=== PATIENT | female | born 2005 | race African-American/Black ===

== ENCOUNTER 2023-12-22 01:39 | Observation (INO) | payer MEDICAID, SELFPAY ==
[2023-12-22] VITALS (40 sets, daily range): BP systolic 82–132; BP diastolic 43–82; PULSE 87–155; RESP 14–37; TEMP 36.2–37; O2SAT 95–100; BMI 23.3; BMI 22.1
--- NOTE | 2023-12-22 01:48 | EKG12_ITS ---
Test Reason : MHC Blood Pressure : / mmHG Vent. Rate : 121 BPM Atrial Rate : 121 BPM P-R Int : 128 ms QRS Dur : 064 ms QT Int : 428 ms P-R-T Axes : 065 068 064 degrees QTc Int : 607 ms Critical Test Result: Long QTc Sinus tachycardia ST & T wave abnormality, consider anterolateral ischemia Abnormal ECG Confirmed by QUEENIE PRESTON MD ([id number]), legal editor VESTA JAVED ([id number]) on 12/22/2023 8:03:21 AM Referred By: Confirmed By:QUEENIE PRESTON MD
--- NOTE | 2023-12-22 01:58 | EX.ED.SAOD ---
HPI History of Present Illness Chief Complaint: Overdose Informant: patient, EMS and police/radioactivity technician Narrative Narrative: Patient brought in after an intentional overdose where she tried to kill herself tonight. She took what was left in 5 different bottles of prescription pills that are all her just. 3 of the bottles contained various amounts of the same prescription pill, bupropion XL 300 mg. She states one of them was almost gone, one of them was about half full, and the other was a little less than half. Each pill container when full shows 90 tablets, so it is estimated that she took a total of approximately 90 of these based on the above information. With regards to the other medications that she took, one of the pill bottles was generic Adderall 10 mg tablets, it was almost full when she took them, and 1 full it contains 60 tablets. The other was sertraline 50 mg tablets, she states it was full and she took all 90 of them. bupropion XL approx 27g amphetamine-dextroamphetamine approx 550mg sertraline HCl approx 4500mg Patient took all of these tablets, and no pills or substances that were not in these 5 prescription bottles, just prior to arrival, and she took them all basically around the same time within 10 minutes or so. She started vomiting less than an hour after taking the tablets, and EMS states this began upon their arrival and continued afterwards. The 2 emesis that they witnessed both contain pill fragments. Police state that she made a 20-minute cell phone video that was basically a suicide note, including information for her father so that he could access her bank account, cell phone, etc. after she . She states that she is depressed about many things, but the thing that basically pushed her over the edge today was looking at her grades in school, she states she is basically failing all of her classes and she states the main reason for this is probably that she is very depressed and just not doing well in school in general. She goes to college here locally, studying animal science. [facility] Medical History Anxiety Depression Home Medications bupropion HCl 300 mg 24 hr tablet, extended release 300 mg PO DAILY 12/22/23 [History Last Taken Unknown] dextroamphetamine-amphetamine 10 mg tablet (Adderall) 10 mg PO BID 12/22/23 [History Last Taken Unknown] sertraline 25 mg tablet 50 mg PO DAILY 12/22/23 [History Last Taken Unknown] Allergy/AdvReac Type Severity Reaction Status Date / Time No Known Allergies Allergy Verified 12/22/23 01:40 Social History Smoking Status: Current every day smoker tobacco type: e-cigarettes ROS ROS ED Constitutional Constitutional ED: Denies chills or fever(s) Eyes Eyes: Denies change in vision or diplopia ENT ENT ED: Denies rhinorrhea or sore throat Cardiovascular Cardiovascular: Denies chest pain or palpitations Respiratory/Chest Respiratory/Chest: Denies cough or dyspnea Gastrointestinal Gastrointestinal: Reports nausea and vomiting; Denies abdominal pain or diarrhea Genitourinary Genitourinary ED: Denies dysuria or hematuria Musculoskeletal Musculoskeletal: Denies back pain or neck pain Integumentary Denies abscess or rash Neurologic Neurologic: Denies headache(s), paresthesias or weakness Psychiatric Psychiatric: Reports depression, suicidal ideation and suicidal thoughts EXAM Physical Exam Const Vital Signs: 12/22/23 01:40 12/22/23 02:40 12/22/23 03:00 Temperature 98.3 F Temperature Source Oral Pulse Rate 93 97 109 H Respiratory Rate 17 16 19 H Blood Pressure 121/79 H 115/73 120/74 Blood Pressure Mean 93 87 89 Pulse Ox 98 97 95 Oxygen Delivery Method Room Air Room Air Room Air 12/22/23 04:00 12/22/23 02:03 12/22/23 02:16 Temperature Temperature Source Pulse Rate 122 H 87 88 Respiratory Rate 18 20 H 16 Blood Pressure 120/72 132/77 H Blood Pressure Mean 88 91 Pulse Ox 95 Oxygen Delivery Method Room Air 12/22/23 02:30 12/22/23 02:45 12/22/23 03:00 Temperature Temperature Source Pulse Rate 99 107 H Respiratory Rate 17 23 H Blood Pressure 115/73 120/70 120/74 Blood Pressure Mean 86 83 87 Pulse Ox Oxygen Delivery Method 12/22/23 03:15 12/22/23 03:30 12/22/23 03:45 Temperature Temperature Source Pulse Rate 108 H 113 H Respiratory Rate 20 H 24 H Blood Pressure 110/76 109/67 113/64 Blood Pressure Mean 88 80 79 Pulse Ox 98 99 Oxygen Delivery Method 12/22/23 04:00 12/22/23 04:15 12/22/23 04:52 Temperature 98.6 F Temperature Source Pulse Rate 135 H 139 H Respiratory Rate 23 H 19 H Blood Pressure 120/72 116/60 128/62 H Blood Pressure Mean 87 75 84 Pulse Ox 97 Oxygen Delivery Method 12/22/23 05:00 Temperature Temperature Source Pulse Rate 141 H Respiratory Rate 18 Blood Pressure 124/65 H Blood Pressure Mean 84 Pulse Ox 98 Oxygen Delivery Method Room Air Positive well nourished and well developed Constitutional Narrative: Blue discolored emesis in patient's hair General Appearance ED: well developed and NAD HEENT Reports moist mucous membranes normocephalic and atraumatic Eyes PERRL and EOMs intact bilaterally Neck full ROM and supple Chest Wall inspection of chest normal and palpation of chest normal Resp normal respiratory effort and clear to auscultation bilaterally Cardio regular rate, regular rhythm and no murmurs Rate: Negative for tachycardic GI non-tender and non-distended Auscultation: normoactive bowel sounds Palpation: soft Back/Spine no CVA tenderness General Back: other FROM Extremity normal to inspection General Extremety ED: Negative for edema, pulses abnormal or tenderness General Extremity: Negative for edema or pulses abnormal Neuro oriented x3, CN's II-XII intact bilaterally and no sensory deficits noted Sensorium / Orientation: awake and alert Motor Exam: strength 5/5 throughout Psych thought process normal, cooperative, speech normal, activity/motor behavior normal, denies hallucinations and denies homicidal ideation Appearance: grossly normal Mood & Affect: depressed Memory / Cognition: memory grossly intact Insight: insight good Judgement: poor Skin no rashes or lesions noted and no wounds MDM MDM MDM Narrative Medical decision making narrative: Patient more risk for side effects/symptoms, and rarely serotonin syndrome, with this overdose, and less likely threat to life. She is stable, given Zofran and not currently vomiting, so is given 25 g of charcoal to drink which she did without difficulty or incident while we obtained labs including acetaminophen and salicylate levels which were essentially 0. Her EKG does show a very long QTc. She has no prior EKG available but I would not anticipate she has a history of this and it is very likely related to her overdose. She did develop tachycardia although she did not have it initially. I discussed her workup, vital signs, prolonged QTc, and overall ingestion/clinical picture with poison control. They recommend admitting her medically. He recommends adding a magnesium, recommendations are also to normalize potassium, calcium, magnesium in the middle of the normal ranges as best possible, right now her calcium is at the low end of normal so we will administer a single 10 mill equivalent IV bolus of potassium over the next hour. He recommends seizure precautions for the first 24 hours even with 900 mg of bupropion XL or more, the patient took much more than that; questionable how much she absorbed given the emesis and charcoal she was given. Tachycardia she developed can occur with any of the 3 ingestants. Her QRS is narrow right now which is favorable. Serotonin syndrome is in the differential and tends to develop 6-8 hours after the ingestion. She is not febrile or altered at this time. Lab Data Attestation: I reviewed the patient's lab results. Labs: Laboratory Results - last 24 hr 12/22/23 12/22/23 12/22/23 01:58 03:00 03:09 WBC 7.2 RBC 5.78 H Hgb 15.0 Hct 46.6 MCV 80.6 L MCH 26.0 L MCHC 32.2 RDW Std Deviation 34.5 L RDW Coeff of Abilio 12.0 Plt Count Not Reportable Immature Gran % (Auto) 0.300 Neut % (Auto) 60.3 Lymph % (Auto) 29.0 Steele % (Auto) 8.5 Eos % (Auto) 0.8 Baso % (Auto) 1.1 H Absolute Neuts (auto) 4.3 Absolute Lymphs (auto) 2.09 Nucleated RBC % 0 Platelet Estimate ADEQUATE Plt Morphology Comment CLUMPED RBC Morphology NORM C+C Sodium Cancelled 136 Potassium Cancelled 3.5 Chloride Cancelled 105 Carbon Dioxide Cancelled 17.0 L Anion Gap Cancelled 14 BUN Cancelled 12 Creatinine Cancelled 0.98 Estim Creat Clear Calc Cancelled 82.40 Est GFR (MDRD) Af Amer Cancelled 93 Est GFR (MDRD) Non-Af Cancelled 77 BUN/Creatinine Ratio Cancelled 12.3 Glucose Cancelled 108 H Calcium Cancelled 9.7 Magnesium 2.4 Total Bilirubin Cancelled 0.80 AST Cancelled 15 ALT Cancelled 17 Alkaline Phosphatase Cancelled 50 Total Protein Cancelled 8.7 H Albumin Cancelled 5.1 H Globulin Cancelled 3.6 Albumin/Globulin Ratio Cancelled 1.4 Serum , Qual NEGATIVE Salicylates Cancelled < 1.7 L Urine Opiates Screen NEGATIVE Urine Methadone Screen NEGATIVE Acetaminophen Cancelled 15.2 Ur Barbiturates Screen NEGATIVE Ur Phencyclidine Scrn NEGATIVE Ur Amphetamines Screen POSITIVE H MDMA (Ecstasy) Screen POSITIVE H U Benzodiazepines Scrn NEGATIVE Urine Cocaine Screen NEGATIVE U Cannabinoids Screen NEGATIVE Ur Drug Screen Comment Ethyl Alcohol Cancelled < 3.0 Rhythm Strip Rhythm Strip: Sinus Tach Rate: 120 Ectopy: None EKG Initial EKG: Interpretation: No Acute Injury Pattern, Sinus Tachycardia and Non-Specific ST Changes Comments: Prolonged QTc, approximately 600 ms Prior EKG tracings: available for review Prior: No Prior Management Discussion w/another healthcare provider: Hospitalist and Mechanics Supervisor (Poison control/toxicology) Critical Care Time Critical Care Time: Yes Critical care time (excluding procedures): 30-74 minutes (33 minutes), Including time spent:, Discussing w/Patient &/or Family/Clearing Distribution Clerk, Discussing w/Consultants and Performing Direct Patient Care at Bedside Discharge Plan Dx/Rx/DC Orders Clinical Impression: Drug overdose, multiple drugs, Suicide attempt by drug overdose Disposition Disposition: Acute Care [facility]
[2023-12-22] MEDS: Activated Charcoal 25 GM/120 ML BOT PO (02:07)
[2023-12-22 02:08] LABS: Absolute Lymphocyte Count 2.09 X10^3/uL (0.83-4.51); Absolute Neutrophil Count 4.3 X10^3/uL (2.0-7.7); Basophil# 0.08 X10^3/uL; Basophil% 1.1 % (0-1); Eosinophil# 0.06 X10^3/uL; Eosinophils% 0.8 % (0-5); Hematocrit 46.6 % (37-47); Lymphocyte # 2.09 X10^3/ul (0.83-4.51); Mean Corp Hgb Conc 32.2 g/dL (32-36); Mean Corpuscular Volume 80.6 fL (81-99); Monocyte# 0.61 X10^3/uL; Monocyte% 8.5 % (0-10); NRBC Flagged by Analyzer 0 % (0-5); Neutrophil # 4.34 X10^3/uL (2.7-7.7); Neutrophil % 60.3 % (47-70); POSITIVE COUNT YES; RBC Distribution Width SD 34.5 fl (35.1-43.9); Red Blood Count 5.78 M/mm3 (4.2-5.4); White Blood Count 7.2 K/mm3 (4.4-11.0)
[2023-12-22 02:16] LABS: Internal QC Validated? YES +Cl - CLEAR BKGD; Pregnancy, Serum, hCG Quali. NEGATIVE Negative
[2023-12-22] MEDS: Ondansetron 4 MG/2 ML Vial IV (02:16)
[2023-12-22 02:39] LABS: Differential Indicated SCAN CRITERIA MET
[2023-12-22 02:41] LABS: Platelet Estimate ADEQUATE (ADEQ)
[2023-12-22 02:42] LABS: Platelet Morphology CLUMPED; Red Cell Morphology NORM C+C NORMAL (NORM C&C)
[2023-12-22 04:07] LABS: Amphetamine Urine VISTA POSITIVE (<1000 ng/mL); Barbiturate Urine VISTA NEGATIVE (< 200 ng/mL); Benzodiazepine Urine VISTA NEGATIVE (< 200 ng/mL); Cocaine Urine VISTA NEGATIVE (< 300 ng/mL); Ecstacy Urine VISTA POSITIVE (< 500 ng/mL); Methadone Urine VISTA NEGATIVE (< 300 ng/mL); PCP Urine VISTA NEGATIVE (< 25 ng/mL); THC Urine VISTA NEGATIVE (< 50 ng/mL); Vista UDS pH Range 4
[2023-12-22 04:25] LABS: ALB/GLOB Ratio 1.4 RATIO (0.9-2.4); AST(SGOT) 15 U/L (15-37); Alanine Aminotransfer ALT/SGPT 17 U/L (13-56); Albumin, Serum 5.1 g/dL (3.2-5.0); Alkaline Phosphatase 50 U/L (45-117); Anion Gap 14 (5-15); BUN 12 mg/dL (7-18); BUN/Creat Ratio 12.3 RATIO (10-20); Calcium,Total 9.7 mg/dL (8.5-10.1); Chloride 105 mmol/L (98-107); Creatinine, Serum 0.98 mg/dL (0.55-1.02); EST Glomerular Filtration Rate 77 mL/min (>60); Est Glom Filt Rate - Afr Amer 93 mL/min (>60); Globulin 3.6 g/dL (2.2-4.2); Glucose 108 mg/dL (74-106); Potassium 3.5 mmol/L (3.5-5.1); Protein, Total 8.7 g/dL (6.4-8.2); Sodium Level 136 mmol/L (136-145)
[2023-12-22 04:26] LABS: Acetaminophen (Tylenol) Level 15.2 ug/mL (10.0-30.0); Alcohol, Blood (Medical)-Serum < 3.0 mg/dL; Salicylate < 1.7 mg/dL (2.8-20.0)
[2023-12-22 04:51] LABS: Magnesium 2.4 mg/dL (1.6-2.6)
[2023-12-22] MEDS: Potassium Chloride 10mEq/100mL 10 MEQ/100 ML IV.SOLN. 100 MEQ IV BOLUS ×2 (04:52→09:47)
--- NOTE | 2023-12-22 04:53 | PCM.HP.STD ---
HPI - General General Date of Admission: 12/22/23 Date of Service: 12/22/23 Chief Complaint: Polypharmacy overdose HPI Narrative TERESA RODRÍGUEZ, is a 18 F who presents to the emergency room with attempted suicide by polypharmacy. By estimates of the ER physician she took bupropion XL approximately 27 g, amphetamine/dextroamphetamine 550 mg, sertraline approximately 4500 mg. She took all of these pills approximately 1 hour or so prior to EMS arrival. The patient started vomiting approximately when EMS arrived and had two emesis that were witnessed both containing pill fragments. Please also report that she made a 20-minute cell phone video that was basically a suicide note that had information for the father to access her bank account and cell phone after she had . 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 Patient denies any chest pain, shortness of breath or fevers or chills she does have increased heart rate since arrival to the emergency room. Poison control was notified and stated adding magnesium and watching electrolyte replacement with a 24-hour observation was recommended. Therefore, she will be admitted to the ICU for 24-hour observation and crisis management team consulted. [facility] Medical History (Updated 12/22/23 @ 03:[address] Fernando Begum MD) Anxiety Depression Home Medications bupropion HCl 300 mg 24 hr tablet, extended release 300 mg PO DAILY 12/22/23 [History Last Taken Unknown] dextroamphetamine-amphetamine 10 mg tablet (Adderall) 10 mg PO BID 12/22/23 [History Last Taken Unknown] sertraline 25 mg tablet 50 mg PO DAILY 12/22/23 [History Last Taken Unknown] Allergy/AdvReac Type Severity Reaction Status Date / Time No Known Allergies Allergy Verified 12/22/23 01:40 Social History Smoking Status: Current every day smoker tobacco type: e-cigarettes ROS Constitutional Constitutional: Denies chills or fever(s) Eyes Eyes: Denies blurry vision ENT HEENT: Denies abnormal hearing Cardiovascular Cardiovascular: Denies chest pain Respiratory/Chest Respiratory/Chest: Denies shortness of breath at rest Gastrointestinal Gastrointestinal: Denies abdominal pain Genitourinary Genitourinary: Denies dysuria Musculoskeletal Musculoskeletal: Denies back pain Integumentary Integumentary: Denies dry skin Neurologic Neurologic: Denies abnormal speech Psychiatric Psychiatric: Reports depression Vital Signs Vital Signs Vital Signs: 12/22/23 01:40 12/22/23 02:40 12/22/23 03:00 Temperature 98.3 F Temperature Source Oral Pulse Rate 93 97 109 H Respiratory Rate 17 16 19 H Blood Pressure 121/79 H 115/73 120/74 Blood Pressure Mean 93 87 89 Pulse Ox 98 97 95 Oxygen Delivery Method Room Air Room Air Room Air 12/22/23 04:00 12/22/23 02:03 12/22/23 02:16 Temperature Temperature Source Pulse Rate 122 H 87 88 Respiratory Rate 18 20 H 16 Blood Pressure 120/72 132/77 H Blood Pressure Mean 88 91 Pulse Ox 95 Oxygen Delivery Method Room Air 12/22/23 02:30 12/22/23 02:45 12/22/23 03:00 Temperature Temperature Source Pulse Rate 99 107 H Respiratory Rate 17 23 H Blood Pressure 115/73 120/70 120/74 Blood Pressure Mean 86 83 87 Pulse Ox Oxygen Delivery Method 12/22/23 03:15 12/22/23 03:30 12/22/23 03:45 Temperature Temperature Source Pulse Rate 108 H 113 H Respiratory Rate 20 H 24 H Blood Pressure 110/76 109/67 113/64 Blood Pressure Mean 88 80 79 Pulse Ox 98 99 Oxygen Delivery Method 12/22/23 04:00 12/22/23 04:15 Temperature Temperature Source Pulse Rate 135 H Respiratory Rate 23 H Blood Pressure 120/72 116/60 Blood Pressure Mean 87 75 Pulse Ox Oxygen Delivery Method Weight Weight: 140 lb Body Mass Index (BMI) 23.3 Physical Exam Const alert and oriented x3 General Appearance: cooperative HEENT normocephalic and head/scalp atraumatic Eyes PERRL and EOMs intact bilaterally Neck no lymphadenopathy Lymph Lymphatic: no lymphadenopathy noted Resp normal respiratory effort, normal air movement and clear to auscultation bilaterally Cardio regular rhythm, S1 normal heart sound and S2 normal heart sound Rate: tachycardic Heart Sounds: Negative for murmur GI normal to inspection, nondistended, normoactive bowel sounds Extremity normal capillary refill Skin General Skin Exam: no breakdown Neuro CN's II-XII intact bilaterally Psych cooperative and affect normal Mood & Affect: depressed Thought Content: suicidality Results Lab / Micro Data 12/22/23 01:58 12/22/23 03:00 Labs: Laboratory Results - last 24 hr 12/22/23 01:58: WBC 7.2, RBC 5.78 H, Hgb 15.0, Hct 46.6, MCV 80.6 L, MCH 26.0 L, MCHC 32.2, RDW Std Deviation 34.5 L, RDW Coeff of Abilio 12.0, Plt Count Not Reportable, Immature Gran % (Auto) 0.300, Neut % (Auto) 60.3, Lymph % (Auto) 29.0, Otero % (Auto) 8.5, Eos % (Auto) 0.8, Baso % (Auto) 1.1 H, Absolute Neuts (auto) 4.3, Absolute Lymphs (auto) 2.09, Nucleated RBC % 0, Platelet Estimate ADEQUATE, Plt Morphology Comment CLUMPED, RBC Morphology NORM C+C, Sodium Cancelled, Potassium Cancelled, Chloride Cancelled, Carbon Dioxide Cancelled, Anion Gap Cancelled, BUN Cancelled, Creatinine Cancelled, Estim Creat Clear Calc Cancelled, Est GFR (MDRD) Af Amer Cancelled, Est GFR (MDRD) Non-Af Cancelled, BUN/Creatinine Ratio Cancelled, Glucose Cancelled, Calcium Cancelled, Total Bilirubin Cancelled, AST Cancelled, ALT Cancelled, Alkaline Phosphatase Cancelled, Total Protein Cancelled, Albumin Cancelled, Globulin Cancelled, Albumin/Globulin Ratio Cancelled, Serum , Qual NEGATIVE, Salicylates Cancelled, Acetaminophen Cancelled, Ethyl Alcohol Cancelled 12/22/23 03:00: Sodium 136, Potassium 3.5, Chloride 105, Carbon Dioxide 17.0 L, Anion Gap 14, BUN 12, Creatinine 0.98, Estim Creat Clear Calc 82.40, Est GFR (MDRD) Af Amer 93, Est GFR (MDRD) Non-Af 77, BUN/Creatinine Ratio 12.3, Glucose 108 H, Calcium 9.7, Magnesium 2.4, Total Bilirubin 0.80, AST 15, ALT 17, Alkaline Phosphatase 50, Total Protein 8.7 H, Albumin 5.1 H, Globulin 3.6, Albumin/Globulin Ratio 1.4, Salicylates < 1.7 L, Acetaminophen 15.2, Ethyl Alcohol < 3.0 12/22/23 03:09: Urine Opiates Screen NEGATIVE, Urine Methadone Screen NEGATIVE, Ur Barbiturates Screen NEGATIVE, Ur Phencyclidine Scrn NEGATIVE, Ur Amphetamines Screen POSITIVE H, MDMA (Ecstasy) Screen POSITIVE H, U Benzodiazepines Scrn NEGATIVE, Urine Cocaine Screen NEGATIVE, U Cannabinoids Screen NEGATIVE, Ur Drug Screen Comment Rhythm Strip Rhythm Strip: Sinus Tach Rate: 120 Ectopy: None Assessment & Plan Assessment/Plan (1) Suicide attempt by drug overdose: (2) Drug overdose, multiple drugs: PLAN: Plan 1 suicide attempt by polypharmacy overdose?admit patient to ICU, consult ICU surgical assistant for ICU management, consult crisis management team for suicide attempt and crisis management?monitor electrolytes and replace accordingly per poison control recommendations. Patient's been given magnesium in the emergency room per poison control recommendation a 24-hour observation was recommended. Once patient is medically stable she can be discharged to psychiatric hospital per crisis team management recommendation. Charges/Coding Visit Charges Inpatient E&M: 80625 Init Hosp L2
[2023-12-22] MEDS: 0.9% Normal Saline (1000mL) 1,000 ML 125 ML IV ×3 (06:07→18:50)
[2023-12-22 06:11] LABS: Absolute Lymphocyte Count 0.87 X10^3/uL (0.83-4.51); Absolute Neutrophil Count 7.3 X10^3/uL (2.0-7.7); Basophil# 0.06 X10^3/uL; Basophil% 0.7 % (0-1); Eosinophil# 0.01 X10^3/uL; Eosinophils% 0.1 % (0-5); Hematocrit 39.6 % (37-47); Hemoglobin 12.9 g/dL (12.0-15.0); Lymphocyte # 0.87 X10^3/ul (0.83-4.51); Lymphocyte % 9.8 % (19-41); Mean Corp Hgb Conc 32.6 g/dL (32-36); Mean Corpuscular Hgb 26.2 pg (27.0-32.0); Mean Corpuscular Volume 80.3 fL (81-99); Mean Platelet Vol. 10.7 fl (6.2-12.0); Monocyte# 0.66 X10^3/uL; Monocyte% 7.4 % (0-10); NRBC Flagged by Analyzer 0 % (0-5); Neutrophil # 7.25 X10^3/uL (2.7-7.7); Neutrophil % 81.8 % (47-70); Platelet Count 411 K/mm3 (150-450); RBC Distribution Width CV 12.1 % (11.6-14.6); RBC Distribution Width SD 34.9 fl (35.1-43.9); Red Blood Count 4.93 M/mm3 (4.2-5.4); White Blood Count 8.9 K/mm3 (4.4-11.0)
[2023-12-22] MEDS: LORazepam 2 MG/ML Syringe IV ×2 (06:14→12:20)
[2023-12-22] MEDS: 0.9% Saline Lock 10 ML Syringe IV ×2 (06:16→06:25)
[2023-12-22 06:28] LABS: ALB/GLOB Ratio 1.2 RATIO (0.9-2.4); AST(SGOT) 13 U/L (15-37); Alanine Aminotransfer ALT/SGPT 19 U/L (13-56); Albumin, Serum 4.3 g/dL (3.2-5.0); Alkaline Phosphatase 47 U/L (45-117); Anion Gap 8 (5-15); BUN 11 mg/dL (7-18); Calcium,Total 8.8 mg/dL (8.5-10.1); Chloride 106 mmol/L (98-107); EST Glomerular Filtration Rate 67 mL/min (>60); Est Glom Filt Rate - Afr Amer 81 mL/min (>60); Estimated Creatinine Clearance 73.41 ml/min; Globulin 3.6 g/dL (2.2-4.2); Glucose 117 mg/dL (74-106); Magnesium 2.1 mg/dL (1.6-2.6); Phosphorus 2.7 mg/dL (2.5-4.9); Potassium 3.7 mmol/L (3.5-5.1); Protein, Total 7.9 g/dL (6.4-8.2); Sodium Level 136 mmol/L (136-145)
[2023-12-22 06:40] LABS: Bedside Glucose 112 mg/dL (74-106)
--- NOTE | 2023-12-22 06:45 | NURSING ---
0612- this RN bedside w/ sitter when pt began having tonic clonic seizure. Staff assist activated. Seizure last approximately 10 to 15 seconds, pt placed on side. Dr. Mckeon paged to bedside. 2 mg of IV ativan administered @ 0614. Pt HR in 150's, O2 stable.
--- NOTE | 2023-12-22 08:42 | CON.PCM.CC_ITS ---
Assessment & Plan Assessment/Plan (1) Suicide attempt by drug overdose: PLAN: Plan RECOMMENDATIONS: 1. Continue supportive measures along with seizure precautions. 2. Continue as needed Ativan. 3. Close monitoring of QTc and electrolyte abnormalities. 4. Continue supplemental IV fluid hydration. 5. Additional recommendations per poison control. IMPRESSIONS: 1. Polypharmacy overdose The patient presented following a polypharmacy suicide attempt, during which time, the patient ingested a combination of bupropion, Adderall and sertraline. She is being monitored clinically for any signs of decompensation or serotonin syndrome. The patient did have one witnessed seizure event this morning which was medically managed with benzodiazepines. She will remain on seizure precautions and accordingly. We will continue to monitor QTc and replete electrolytes as needed. Will enact additional interventions per poison control recommendations. The patient will require crisis evaluation once medically stabilized. 2. History of depression/anxiety/ADHD Complicates care, management, recovery and prognosis. Continue supportive measures as noted above. This note was generated with [employer] dictation software. It may contain incorrect words, spelling, and punctuation that were not noted in checking the note before signing. HPI Consult Data Date of Consult: 12/22/23 HPI Narrative Reason for Consultation: Polypharmacy overdose HPI Narrative: The patient is a 18-year-old female, with a history as outlined below, who prese nted to the emergency department on December 21 following an intentional overdose that included the ingestion of bupropion XL, sertraline and Adderall. History pertinent to her hospitalization was obtained primarily via chart review, as the patient is too altered presently to provide any additional details. According to the report, the patient began vomiting approximately 1 hour after tablet ingestion. Apparently, the patient became distraught over her performance in college after her grades were posted. In the emergency department, the patient did receive activated charcoal. She was noted to have QTc prolongation on EKG. Poison control was contacted regarding the patient's status. The patient was subsequently admitted to the medical intensive care unit for close monitoring. Shortly after her arrival to the ICU, staff noted a possible seizure, which was medically managed with IV Ati van. The patient remains on seizure precautions. Her morning labs are significant for a potassium of 3.7, creatinine of 1.1, phosphorus of 2.7, and magnesium of 2.1. The patient is currently afebrile and hemodynamically stable. [facility] Medical History Anxiety Depression Home Medications bupropion HCl 300 mg 24 hr tablet, extended release 300 mg PO DAILY 12/22/23 [History Last Taken Unknown] dextroamphetamine-amphetamine 10 mg tablet (Adderall) 10 mg PO BID 12/22/23 [History Last Taken Unknown] sertraline 25 mg tablet 50 mg PO DAILY 12/22/23 [History Last Taken Unknown] Allergy/AdvReac Type Severity Reaction Status Date / Time No Known Allergies Allergy Verified 12/22/23 01:40 Social History Smoking Status: Current every day smoker tobacco type: e-cigarettes ROS Review of Systems ROS Unobtainable: due to mental status Physical Exam Const alert Constitutional Narrative: Appears confused and disoriented. HEENT normocephalic and head/scalp atraumatic Eyes PERRL, EOMs intact bilaterally and conjunctivae normal Neck supple General: trachea midline Chest inspection of chest normal Resp Effort and Inspection: tachypneic Auscultation: rales; Negative for rhonchi or wheezes Cardio S1 normal heart sound, S2 normal heart sound and no murmurs Rate: tachycardic GI normal to inspection, nondistended, normoactive bowel sounds Extremity no clubbing, cyanosis or edema Skin no rashes or lesions noted Neuro moves all extremities Psych Activity / Motor Behavior: restless Lab / Micro Data 12/22/23 06:05 12/22/23 06:05 Labs: Laboratory Results - last 24 hr 12/22/23 01:58: WBC 7.2, RBC 5.78 H, Hgb 15.0, Hct 46.6, MCV 80.6 L, MCH 26.0 L, MCHC 32.2, RDW Std Deviation 34.5 L, RDW Coeff of Abilio 12.0, Plt Count Not Reportable, Immature Gran % (Auto) 0.300, Neut % (Auto) 60.3, Lymph % (Auto) 29.0, Hocking % (Auto) 8.5, Eos % (Auto) 0.8, Baso % (Auto) 1.1 H, Absolute Neuts (auto) 4.3, Absolute Lymphs (auto) 2.09, Nucleated RBC % 0, Platelet Estimate ADEQUATE, Plt Morphology Comment CLUMPED, RBC Morphology NORM C+C, Sodium Cancelled, Potassium Cancelled, Chloride Cancelled, Carbon Dioxide Cancelled, Anion Gap Cancelled, BUN Cancelled, Creatinine Cancelled, Estim Creat Clear Calc Cancelled, Est GFR (MDRD) Af Amer Cancelled, Est GFR (MDRD) Non-Af Cancelled, BUN/Creatinine Ratio Cancelled, Glucose Cancelled, Calcium Cancelled, Total Bilirubin Cancelled, AST Cancelled, ALT Cancelled, Alkaline Phosphatase Cancelled, Total Protein Cancelled, Albumin Cancelled, Globulin Cancelled, Albumin/Globulin Ratio Cancelled, Serum , Qual NEGATIVE, Salicylates Cancelled, Acetaminophen Cancelled, Ethyl Alcohol Cancelled 12/22/23 03:00: Sodium 136, Potassium 3.5, Chloride 105, Carbon Dioxide 17.0 L, Anion Gap 14, BUN 12, Creatinine 0.98, Estim Creat Clear Calc 82.40, Est GFR (MDRD) Af Amer 93, Est GFR (MDRD) Non-Af 77, BUN/Creatinine Ratio 12.3, Glucose 108 H, Calcium 9.7, Magnesium 2.4, Total Bilirubin 0.80, AST 15, ALT 17, Alkaline Phosphatase 50, Total Protein 8.7 H, Albumin 5.1 H, Globulin 3.6, Albumin/Globulin Ratio 1.4, Salicylates < 1.7 L, Acetaminophen 15.2, Ethyl Alcohol < 3.0 12/22/23 03:09: Urine Opiates Screen NEGATIVE, Urine Methadone Screen NEGATIVE, Ur Barbiturates Screen NEGATIVE, Ur Phencyclidine Scrn NEGATIVE, Ur Amphetamines Screen POSITIVE H, MDMA (Ecstasy) Screen POSITIVE H, U Benzodiazepines Scrn NEGATIVE, Urine Cocaine Screen NEGATIVE, U Cannabinoids Screen NEGATIVE, Ur Drug Screen Comment 12/22/23 06:05: WBC 8.9, RBC 4.93, Hgb 12.9, Hct 39.6, MCV 80.3 L, MCH 26.2 L, MCHC 32.6, RDW Std Deviation 34.9 L, RDW Coeff of Abilio 12.1, Plt Count 411, MPV 10.7, Immature Gran % (Auto) 0.200, Neut % (Auto) 81.8 H, Lymph % (Auto) 9.8 L, Hocking % (Auto) 7.4, Eos % (Auto) 0.1, Baso % (Auto) 0.7, Absolute Neuts (auto) 7.3, Absolute Lymphs (auto) 0.87, Nucleated RBC % 0, Sodium 136, Potassium 3.7, Chloride 106, Carbon Dioxide 22.0, Anion Gap 8, BUN 11, Creatinine 1.10 H, Estim Creat Clear Calc 73.41, Est GFR (MDRD) Af Amer 81, Est GFR (MDRD) Non-Af 67, BUN/Creatinine Ratio 10.0, Glucose 117 H, Calcium 8.8, Phosphorus 2.7, Magnesium 2.1, Total Bilirubin 0.60, AST 13 L, ALT 19, Alkaline Phosphatase 47, Total Protein 7.9, Albumin 4.3, Globulin 3.6, Albumin/Globulin Ratio 1.2 12/22/23 06:21: POC Glucose 112 H Rhythm Strip Rhythm Strip: Sinus Tach Rate: 120 Ectopy: None Charges/Coding Visit Charges Inpatient E&M: 10745 Init Hosp L3
--- NOTE | 2023-12-22 09:24 | EKG12_ITS ---
Test Reason : LONG QT Blood Pressure : / mmHG Vent. Rate : 132 BPM Atrial Rate : 132 BPM P-R Int : 104 ms QRS Dur : 084 ms QT Int : 386 ms P-R-T Axes : 000 078 046 degrees QTc Int : 571 ms Critical Test Result: Long QTc Sinus tachycardia with short DC Otherwise normal ECG No previous ECGs available Confirmed by Berny Simon ([id number]), production editor THOMAS UP ([id number]) on 12/24/2023 11:12:36 AM Referred By: SHERIE Confirmed By:Berny Simon
[2023-12-22 10:04] LABS: CPK Total, Creatine Kinase 106 U/L (26-192)
[2023-12-22] MEDS: Midazolam 2 MG/2 ML Syringe 4 MG IV (12:34)
[2023-12-22] MEDS: Propofol 10MG/Ml 1,000 MG/100 ML Bottle 3.6 MG CONT INF (12:35)
--- NOTE | 2023-12-22 12:41 | RAD_ITS ---
STUDY: X-RAY CHEST REASON FOR EXAM: Female, 18 years old. Intubation TECHNIQUE: Single AP portable view of the chest. COMPARISON: None. FINDINGS: An endotracheal tube is seen with the tip in the proximal portion of the right main bronchus. It should be withdrawn approximately 3.9 cm. The lungs are clear and expanded. There is no demonstrated pleural abnormality. Normal size heart. Normal mediastinum and victoriano. Normal visualized pulmonary arteries. Normal visualized aortic arch and descending thoracic aorta. Normal visualized thoracic spine. Normal visualized ribs, clavicles, and shoulders. There is no demonstrated abnormality of the visualized soft tissue structures of the upper abdomen. RAD/Chest 1 View (Portable) IMPRESSION: The tip of the endotracheal tube is in the right mainstem bronchus. It should be withdrawn approximately 3.9 cm. Electronically Signed: Cm Cadena MD at 13:56 EDT ,
[2023-12-22 13:11] LABS: CPK Total, Creatine Kinase 202 U/L (26-192); Triglycerides 103 mg/dL
--- NOTE | 2023-12-22 13:12 | PCM.PN.BLA ---
Progress Note I was notified by nursing staff this afternoon that the patient had developed refractory generalized tonic-clonic seizure activity. She was medicated with Ativan, but continued to demonstrate seizure activity. During these episodes, the patient became progressively hypoxemic and required support via [id number]. Ultimately, the decision was made to emergently intubate the patient for airway protection. Postintubation, a stat consultation was placed to tele-neurology. A short time later, I spoke directly with the neurology provider through [facility], who ultimately recommended that the patient be transferred for continuous EEG monitoring. In addition, I did call and speak with poison control, who was updated on the patient's clinical change. They had no further recommendations, other than continuing to monitor the QTc and replete electrolytes. The patient's hospitalist was also updated on the clinical change and recommendations for transfer to a tertiary care facility.
--- NOTE | 2023-12-22 13:14 | PCM.OP.PRO ---
Procedure Report Date of Procedure: 12/22/23 Intubation Indication: Respiratory failure Consent was obtained from: Procedure was done emergently The patient was placed in the appropriate sniffing position. Preoxygenated sedation via [id number] was provided for a minimum of 3 minutes. The patient had continuous cardiac as well as pulse oximetry monitoring during the procedure. Procedure sedation was provided by the administration of 4 mg of Versed. Direct laryngoscopy was then performed using a number 3 MAC blade, which revealed a grade 1 view. A 7.5 mm endotracheal tube was visualized advancing between the cords to the level of 24 cm at the lip. The stylette was then removed and discarded. Tube placement was confirmed by fogging in the tube along with equal and bilateral breath sounds. Colorimetric change was visualized on the CO2 meter. The cuff was then inflated and the tube secured using a commercially available device. A good pulse oximetry waveform was seen on the monitor throughout the procedure. A portable chest x-ray has been ordered to confirm appropriate placement. The patient tolerated the procedure well. The postintubation plain film chest x-ray demonstrated the endotracheal tube to be in the right mainstem. Therefore, the endotracheal tube was retracted 3 cm. Procedures Pulmonary 9xxxx: 10095 Insert emergency airway
[2023-12-22 13:41] LABS: Allen Test Positive; Base Excess -5 mmol/L (-2 to +2); Bicarbonate 20.2 mmol/L (22-26); Blood Gas Specimen Type ART; Mode AC; O2 Delivery Device Adult Vent; PEEP 5; PO2 200 mmHG (75-100); RR 14; SITE L Radial; SO2 100 % (95-99); Total Carbon Dioxide 21 mmol/L; pCO2 36.1 mmHg (35-45); pH 7.36 (7.35-7.45)
--- NOTE | 2023-12-22 13:55 | NURSING ---
Called pt's grandmother listed on chart- made aware of pt's medical care thus far and events leading up to hospitalization. Tayler got pt's father in on a 3 way call and he was updated as well (Jeramy).
[2023-12-22 15:04] LABS: Anion Gap 15 (5-15); BUN 11 mg/dL (7-18); BUN/Creat Ratio 7.9 RATIO (10-20); Calcium,Total 8.5 mg/dL (8.5-10.1); Chloride 106 mmol/L (98-107); EST Glomerular Filtration Rate 51 mL/min (>60); Est Glom Filt Rate - Afr Amer 62 mL/min (>60); Estimated Creatinine Clearance 57.68 ml/min; Glucose 112 mg/dL (74-106); Magnesium 2.2 mg/dL (1.6-2.6); Phosphorus 6.7 mg/dL (2.5-4.9); Potassium 4.2 mmol/L (3.5-5.1); Sodium Level 139 mmol/L (136-145)
--- NOTE | 2023-12-22 15:34 | PCM.OP.PRO ---
Procedure Report Date of Procedure: 12/22/23 Assessment & Plan Assessment/Plan (1) Drug overdose, multiple drugs: QUALIFIERS: Encounter type: initial encounter Injury intent: intentional self-harm Qualified Code(s): T50.912A - Poisoning by multiple unspecified drugs, medicaments and biological substances, intentional self-harm, initial encounter Procedures Radiology Radiology Access Procedures: PICC Procedure Time Out Time Out Informed consent given: Yes Consent signed: Yes Time out checklist: patient, procedure, site marked/identified, positioning of patient, supplies available and allergies confirmed Time out verified: Yes Time out date: 12/22/23 Time out time: 13:38 PICC Line Consent Screening tool completed:: Yes Consent obtained:: Yes Consent given by (patient or responsible alliance party):: grandmother via phone Line successful (if no, document why in comments):: Yes Insertion Reason for Insertion: Poor Venous Access Date of Insertion: 12/22/23 Ok to use: Yes Type of PICC inserted: Dual Power PICC PICC Lot #: [id number] PICC Reference #: [id number] Microintroducer Used: Yes (in kit) Ultrasound/Equipment Used: Probe Cover Kit Trimmed Length (cm): 42 Insertion Length (cm): 40 Exposed Length (cm): 2 Tip Placement: Caval Atrial Junction Placement Confirmation: 3CG Insertion Vein: Left Basilic Insertion Attempts: 1 Local Anesthesia Used: Lidocaine 1% (in kit) Dressing Applied: Statlock and Tegaderm CHG Arm Measurement above site (in cm): 29 Patient Tolerated Procedure: Well Threading Difficulties: No Comments Comment: Patient identity was verified with two patient identifiers. Informed consent was obtained via phone from father and grandmother, witnessed by primary nurse, and time-out was completed. Hands were sanitized. The patient was positioned supine with left arm at 90 degrees. The patient's upper arm vasculature was assessed using ultrasound. Patency of the left basilic vein was confirmed and the vein was externally marked. An external measurement was obtained of 42 cm. External leads were applied to the patient's right upper chest and laterally and inferior of the umbilicus on the mid axillary line. Cap, mask, and prep gloves were donned. The underdrape was placed under the patient's arm. The site was prepped with chlorhexidine, and tourniquet was loosely applied. Prep gloves were discarded, and hands were sanitized. The sterile kit was opened with additional supplies dropped in. Sterile gown and gloves were donned, and the patient was draped. The sterile kit was assembled with needle, introducer, needless connectors, and each catheter lumen flushed with sterile normal saline. The marked site of insertion was anesthetized with 1% lidocaine from the kit. Patient tolerated well. The left basilic vein was then accessed using ultrasound guidance and guidewire was inserted to safety gareth. The tourniquet was released. The access needle was removed while securing the guidewire in place. The site was again anesthetized with 1% lidocaine, prior to insertion of introducer sheath and dilator. Patient tolerated the insertion well. The catheter was trimmed to a length of 42 cm. Using 3C guidance, the catheter was then inserted through the introducer sheath, slowly. There was no resistance on insertion. The catheter followed the expected course of the vessel using 3CG tracking. The introducer sheath was retracted and peeled away, incrementally, while keeping the catheter secured. Maximal p-wave, without deflection, confirming placement in the cavoatrial junction, was obtained at an insertion length of 40 cm, leaving 2 cm external. The stylet was removed. A flushed needleless connector was attached to the lumen. Aspiration of the lumen was performed to remove any air and confirm blood return. Blood return was verified and each lumen was flushed with 10 ml of sterile normal saline in a pulsatile fashion. The each lumen was clamped with the last pulsed flush. Total sterile flushes used for the insertion was 8 10 ml syringes, 2 from the kit. Finally, the insertion site was cleaned with chlorhexidine, and the catheter was secured using a StatLock. The site was covered with a Tegaderm CHG Dressing and disinfecting caps were applied. Baseline arm circumference was obtained at the insertion site and measured 29 cm. The patient was provided with a patient education handout on PICC line care and verbalized understanding of infection prevention, heavy lifting restriction, maintaining mobility, and watching for any signs of infection. Primary nurse is aware that the PICC line is ready for use.
[2023-12-22] MEDS: 0.9% Normal Saline (1000mL) 1,000 ML 999 ML IV ×2 (16:42→17:49)
[2023-12-22 17:02] LABS: Bedside Glucose 89 mg/dL (74-106)
[2023-12-22] MEDS: Norepinephrine 8 MG in 0.9% Normal Saline (250mL Bag) 242 ML 9.4 MG CONT INF (19:30)
--- NOTE | 2023-12-22 20:35 | NURSING ---
2029- this RN received call from [facility] report for pt. Report given at this time to NORBERTO Dominguez from [facility]
--- NOTE | 2023-12-26 16:02 | PCM.DC.SUM ---
Providers Date of Admission: 12/22/23 Date of Discharge: 12/22/23 Primary Care Physician: No Primary Care Phys Consultations 12/22/23 05:50 Consult: Cube Cutter / Pulmonary Medicine Routine Consulting Provider: Intensivists/Pulmonary Med Reason for Consult: ICU management of polypharmacy overdose EMERGENT Consult: No Notified: Yes Date Notified: 12/22/23 Time Notified: 05:05 Method of Notification: Text 12/22/23 12:35 Teleneurology [Consult: Tele-Neurology] Routine Consulting Provider: [facility] Reason for Consult: Seizure EMERGENT Consult: Yes Notified: Yes Date Notified: 12/22/23 Time Notified: 12:35 Method of Notification: Verbal Nursing Unit Staff Notify [facility] of Tele-Neurology Consult: Yes Reason For Visit: POLYPHARMACY OVERDOSE Diagnosis Discharge Diagnosis (1) Drug overdose, multiple drugs: Status: Acute Code(s): T50.911A - Poisoning by multiple unspecified drugs, medicaments and biological substances, accidental (unintentional), initial encounter Qualifiers: Encounter type: initial encounter Injury intent: intentional self-harm Qualified Code(s): T50.912A - Poisoning by multiple unspecified drugs, medicaments and biological substances, intentional self-harm, initial encounter Plan 1. Suicide attempt with polypharmacy-Adderall, Wellbutrin, and Zoloft #2 seizure secondary to #1 #3 chronic depression Medications at Discharge Home Medications bupropion HCl 300 mg 24 hr tablet, extended release 300 mg PO DAILY 12/22/23 dextroamphetamine-amphetamine 10 mg tablet (Adderall) 10 mg PO BID 12/22/23 sertraline 25 mg tablet 50 mg PO DAILY 12/22/23 Hospital Course Operations None Procedures Intubation Summary of Care Provided Minutes Spent on Discharge: 70 Hospital Course: This 18-year-old black female was brought into [facility] ER after an intentional overdose in an attempt to commit suicide, patient took large amounts of Zoloft, Wellbutrin, and Adderall. Patient was given activated charcoal due to the fact that she was alert and was able to follow instructions, poison control was contacted, EKG showed a prolongated QT interval, CBC was unremarkable. It was recommended the patient be admitted due to the amounts of medications she took, it was also recommended that she be placed under seizure precautions for the first 24 hours. Patient was admitted to ICU, she was seen in consultation by critical care and monitor. Later that morning, she had evidence of movements characterized as seizures, teleneurology was contacted and recommended intubating the patient and placing her on propofol, they also recommended transferring her to a tertiary facility with 24-hour EEG capability. Patient was given Ativan for the seizure activity initially. [facility] was contacted and agreed to take the patient and had a bed available. I talked to the patient's grandmother who was present just before she was transferred to [facility] and answered her questions. On 12/22/2023, patient was seen and examined: On examination she was sedated and on the ventilator, she does not appear to be in any distress. Vital signs as documented. Skin warm and dry and without overt rashes. Neck without JVD, thyroid appears normal, trachea is midline, neck is supple. Lungs clear, normal air movement was noted. Heart exam notable for regular rhythm, normal sounds and absence of murmurs, rubs or gallops. Abdomen unremarkable and without evidence of organomegaly, masses, or abdominal aortic enlargement, bowel sounds are present in all 4 quadrants, Extremities nonedematous, no cyanosis was noted, no clubbing was noted. Neuro: Patient was sedated and on the ventilator psych: Patient was sedated and on the ventilator On 12/22/2023, patient was transferred to [facility] for further care. Weight / BMI Weight Weight: 60.509 kg Body Mass Index (BMI) 22.1 ABG / Lab / Microbiology Data 12/22/23 06:05 12/22/23 12:45 Meaningful Use Info Meaningful Use Diagnoses (Choose all that apply): None applicable Discharge Plan Admission Admit Date/Time: 12/22/23 05:01 Primary Reason for Your Visit: intentional OD Attending Provider: Buck Franks Primary Care Provider: Care Physician,No Primary Consulting Providers: Marco Kent; Markel Cox; Hemanth Ruiz; Ghassan Davalos; Kay Valdez; Mark Andrade; Evelyne Meeks; Lynette Causey; Raad Bazan; Archie Stubbs; Hussein Alarcon; Paulie Delacruz; Pawan Mckeon; Mark Tobias; Zuly Trinidad; Pippa Beaulieu; Nicolasa Mendez; Keyla Horner; Grant Marcos; Mary Ravi; Silvia Romero; Lalo Orosco; Erica Latif; Jamison Treadwell; Luisito Bates; Matthew Burkett; Richelle Wesley; Earline Rogers; Cornelio Timmons; Pro Dubon; Reji Sheldon; Preeti Hough; Ekta Philippe; Delmy Mancuso; Sergo Catalan; Keena Leach; VIKTOR JEAN; Armond Deshpande; Jaja Zheng Discharge Orders/Prescriptions Prescriptions: No Action sertraline 25 mg tablet 50 mg PO DAILY dextroamphetamine-amphetamine [Adderall] 10 mg tablet 10 mg PO BID Rx Instructions: administer doses at least 4-6 hours apart bupropion HCl 300 mg tablet extended release 24 hr 300 mg PO DAILY Referrals / Follow Up: Care Physician,No Primary [Primary Care Provider] - [facility],Out of [Non-Staff] - Disposition Disposition (needs filled in before D/C Order can be placed): DC/Tx to Another Type of HCF Charges/Coding Visit Charges OBSV E&M: 11754 Observ/hosp same date L2
== END 2023-12-22 20:15 | disposition other institution (70) ==
LOC: ED 04:14 → ICU 05:11
PROVIDERS: Internal Medicine Critical Care Medicine; Admitting Provider Family Medicine; Emergency Provider Emergency Medicine; Visit Provider Internal Medicine
DX: T43.292A Poisoning by other antidepressants, intentional self-harm, initial encounter (principal); T43.222A Poisoning by selective serotonin reuptake inhibitors, intentional self-harm, initial encounter; T43.622A Poisoning by amphetamines, intentional self-harm, initial encounter; T14.91XA Suicide attempt, initial encounter; R56.9 Unspecified convulsions; F17.290 Nicotine dependence, other tobacco product, uncomplicated; I45.81 Long QT syndrome; F90.9 Attention-deficit hyperactivity disorder, unspecified type; F41.9 Anxiety disorder, unspecified; Z55.3 Underachievement in school; F32.A Depression, unspecified
CPT/HCPCS: 36569 ×2; 31500; 31720; 36600; 71045; 80048; 80053; 80307; 80320; 80329; 82550; 82803; 82962; 83735; 84100; 84478; 84703; 85025; 93005; 94002; 95819; 96361; 96365; 96366; 96367; 96375; 96376; 99221; 99252; 99284; J7030; J7050; A4216; G0378; G0463; G0480; J2405